=== PATIENT | female | born 1955 | race Caucasian/White ===

== ENCOUNTER → 2016-07-08 | Outpatient (CLI) | payer MEDICAID ==
[~2016-07-08] MED LIST: ALBU2.5V2 AEROSOL; ASPI-725 PO; ATOR20TA27 PO; CITA-50 PO; FLUT1DIS31; GLIM4TAB32 PO; INSU100C11 SQ; LANS30CA58 PO; LEVO200T8 PO; LEVO75TA58 PO; LISI-126 PO; NITR0.4T10 SL; POTA1TAB11 PO; SERT-80 PO; SPIR25TA4 PO; TRAV2.5D2 BOTH EYES; [UNRECOGNIZED DRUG - CODE] PO; [UNRECOGNIZED DRUG - CODE] PO; iron
[2016-07-08 13:19] LABS: HCT - HEMATOCRIT 38.3 % (36-46); HGB - HEMOGLOBIN 12.8 GM/DL (12-16); MEAN CORPUSCULAR HGB 32.2 UUG (26-34); MEAN CORPUSCULAR HGB CONC(MCHC 33.4 GM/DL (31-37); MEAN CORPUSCULAR VOLUME 96.5 UM3 (80-100); MEAN PLATELET VOLUME 10.4 UM3 (9.4-12.4); RED BLOOD COUNT 3.97 M/MM3 (4.00-5.20); WBC - WHITE BLOOD COUNT 3.8 T/MM3 (4.5-11.0)
[2016-07-08 13:27] LABS: INR 1.14 (0.76-1.04); PROTHROMBIN TIME 12.4 SEC (9.31-12.49)
[2016-07-08 13:32] LABS: EOSINOPHILS # (MANUAL) 0.1 T/MM3 (0-0.5); LYMPHOCYTES # (MANUAL) 1.5 T/MM3 (1-4.8); MONOCYTES # (MANUAL) 0.2 T/MM3 (0-0.8); NEUTROPHILS #(MANUAL)-ABSOLUTE 2.1 T/MM3 (1.8-7.7); TOTAL CELLS COUNTED 100 %
[2016-07-08 13:33] LABS: ALBUMIN 3.3 G/DL (3.5-5.0); ALKALINE PHOSPHATASE 173 U/L (38-126); ALT (SGPT) 41 U/L (9-52); ANION GAP 8 MEQ/L (5-15); AST (SGOT) 54 U/L (14-36); BUN/CREATININE RATIO 8 RATIO (6-26); CALCIUM 8.5 MG/DL (8.4-10.2); CHLORIDE 107 MEQ/L (98-107); CO2 - CARBON DIOXIDE 30 MEQ/L (22-30); CREATININE 0.6 MG/DL (0.7-1.2); GLOMERULAR FILTRATION RATE 103; GLUCOSE 195 MG/DL (65-110); POTASSIUM 3.2 MEQ/L (3.6-5); SODIUM 145 MEQ/L (134-144); TOTAL PROTEIN 6.5 G/DL (6.3-8.2)
[2016-07-11 04:34] LABS: HEPATITIS B SURFACE AG - BATCH NEGATIVE (NEGATIVE)
[2016-07-11 04:39] LABS: HEPATITIS A ANTIBODY IGM-BATCH NEGATIVE (NEGATIVE)
[2016-07-11 04:51] LABS: HEPATITIS C VIRUS AB-BATCH NEGATIVE (NEGATIVE)
== END ==
LOC: LAB 12:58
PROVIDERS: ATTEND Surgery
DX: R18.8 Other ascites (principal)
CPT/HCPCS: 36415; 80053; 80074; 85007; 85027; 85610

== ENCOUNTER → 2016-07-11 | Outpatient (CLI) | payer MEDICAID ==
[~2016-07-11] MED LIST changes: +ALBU18HF2 ORAL INH; +AMLO5TAB2 PO; +BENZ-16 PO; +DOXY100C40 PO; +FLUT1DIS ORAL INH; +FLUT9.9S NS; +HYDR-3989 PO; +INSU100C6 SQ; +IOHEXOL 300 MG/ML 100ml INJECTION ONE; +LEVO150T11 PO; +MELO7.5T12 PO; +MONT10TA22 PO; +NORMAL SALINE 100 ML ONE; +P-EP-93 PO; +PANT40TA PO; +PRAV20TA4 PO; +SALINE FLUSH 10ml SYRINGE ONE; +TRAM50TA4 PO
--- NOTE | 2016-07-11 11:40 | DI ---
Indication: ITS.REASON: R18.8 ASCITES PROCEDURE: CT ABD/PELVIS W/CONTRAST ONLY: Encounter: Initial Comparison: None Technique: Axial CT images were performed through the abdomen and pelvis after the administration of intravenous contrast. Coronal and sagittal two-dimensional reformats. Automated Exposure Control and Iterative Reconstruction dose reducing techniques were utilized. Contrast: Omnipaque 300 100 mL Findings: The lung bases are clear. The liver is nodular and cirrhotic in configuration. Moderate abdominal ascites seen. No bile duct dilatation or discrete enhancing liver mass. The gallbladder is surgically absent. There are small varices surrounding the lower esophageal segment and in the splenorenal area. The spleen is upper normal in size. The pancreas is grossly normal as are the adrenal glands. Kidneys are normal. No abdominal or pelvic lymphadenopathy. Bladder is within normal limits. Uterus is surgically absent. Sigmoid diverticulosis without evidence of acute diverticulitis. No evidence for bowel obstruction. Bone windows show degenerative changes in the spine. Impression: Cirrhosis and evidence of portal hypertension with moderate ascites and small esophageal varices. .
== END ==
LOC: IMA 08:59
PROVIDERS: ATTEND Surgery
DX: K74.69 Other cirrhosis of liver (principal); I85.10 Secondary esophageal varices without bleeding; K76.6 Portal hypertension; R18.8 Other ascites
CPT/HCPCS: 74177; J7050; Q9967

== ENCOUNTER 2016-07-16 11:43 | Outpatient (CLI) | payer MEDICAID ==
[2016-07-16] VITALS (25 sets, daily range): BP systolic 127–173; BP diastolic 58–77; PULSE 75–86; RESP 15–32; TEMP 97.3–97.8; O2SAT 94–99; Ht 162.6 cm; Wt 115.8 kg
[~2016-07-16] VITALS: Ht 162.6 cm; Wt 115.8 kg
[~2016-07-16 11:43] MED LIST changes: +ALBUMIN HUMAN 25% 12.5gm 50ml IV ONE; -FLUT1DIS31; -IOHEXOL 300 MG/ML 100ml INJECTION ONE; -LEVO75TA58 PO; +LIDOCAINE 1% (10mg/ml) 2ml SDV INJ ONE; +LR 1,000 ML IV SCH; -NORMAL SALINE 100 ML ONE; -SALINE FLUSH 10ml SYRINGE ONE; -[UNRECOGNIZED DRUG - CODE] PO; -iron
[2016-07-16 13:04] LABS: BASOPHILS % (AUTO) 0.8 % (0-2); EOSINOPHILS # (AUTO) 0.1 T/MM3 (0-0.5); EOSINOPHILS % (AUTO) 1.5 % (0-4); HCT - HEMATOCRIT 38.1 % (36-46); HGB - HEMOGLOBIN 12.7 GM/DL (12-16); IMMATURE GRANULOCYTE # (AUTO) 0.01 T/MM3 (0.00-0.03); IMMATURE GRANULOCYTE % (AUTO) 0.3 % (0.0-0.5); LYMPHOCYTES # (AUTO) 1.6 T/MM3 (1-4.8); LYMPHOCYTES % (AUTO) 39.5 % (23-45); MEAN CORPUSCULAR HGB 32.6 UUG (26-34); MEAN CORPUSCULAR HGB CONC(MCHC 33.3 GM/DL (31-37); MEAN CORPUSCULAR VOLUME 97.9 UM3 (80-100); MEAN PLATELET VOLUME 10.6 UM3 (9.4-12.4); MONOCYTES # (AUTO) 0.4 T/MM3 (0-0.8); MONOCYTES % (AUTO) 10.3 % (0-9.0); NEUTROPHILS #(AUTO)-ABSOLUTE 1.9 T/MM3 (1.8-7.7); NEUTROPHILS % (AUTO) 47.6 % (33-66); RED BLOOD COUNT 3.89 M/MM3 (4.00-5.20)
[2016-07-16 13:05] LABS: INR 1.22 (0.76-1.04); PROTHROMBIN TIME 13.3 SEC (9.31-12.49)
[2016-07-16 13:11] LABS: ALBUMIN 3.1 G/DL (3.5-5.0); ALKALINE PHOSPHATASE 152 U/L (38-126); ALT (SGPT) 47 U/L (9-52); ANION GAP 8 MEQ/L (5-15); AST (SGOT) 50 U/L (14-36); BUN/CREATININE RATIO 12 RATIO (6-26); CALCIUM 8.6 MG/DL (8.4-10.2); CHLORIDE 106 MEQ/L (98-107); CO2 - CARBON DIOXIDE 30 MEQ/L (22-30); CREATININE 0.6 MG/DL (0.7-1.2); GLOMERULAR FILTRATION RATE 103; GLUCOSE 142 MG/DL (65-110); POTASSIUM 3.9 MEQ/L (3.6-5); SODIUM 144 MEQ/L (134-144); TOTAL PROTEIN 6.2 G/DL (6.3-8.2)
[2016-07-16] MEDS ORDERED: SALINE FLUSH 10ml SYRINGE IVF ONE (14:05)
[2016-07-16] MEDS ORDERED: FENTANYL 100mcg/2ml INJECTION IV ONE (14:05)
[2016-07-16] MEDS ORDERED: MIDAZOLAM 5mg/5ml INJECTION IV ONE (14:05)
[2016-07-16] MEDS ORDERED: MIDAZOLAM 5mg/5ml INJECTION IV PRN (14:22)
--- NOTE | 2016-07-16 15:40 | GSPOSTPROC ---
Immediate Operative Note DATE: 07/16/16 TIME: 15:39 Postop Diagnosis: Ascites Surgical Procedure: Other (Paracentesis) Surgeon: JONATHAN Nieto MD Jul 16, 2016 15:40
--- NOTE | 2016-07-16 15:49 | DI ---
Indication: ITS.REASON: ascites Procedure: US THORACENTISIS/PARA NOCHARGE: Encounter: Subsequent Comparison: Abdominal CT 07/11/2016 Technique: Sonographic guidance was provided for Dr. Carter for paracentesis. Findings: Abdominal ascites identified within all four abdominal quadrants. 4500 mL were removed. Post removal, no significant ascites is identified. Impression: Successful sonographic guidance for paracentesis resulting in 4500 mL of drainage. .
[2016-07-16 16:23] LABS: BODY FLUID TYPE ASCITES FLUID; PH, BODY FLUID 7.85
[2016-07-16 16:26] LABS: BODY FLUID TYPE ASCITES FLUID
[2016-07-16 16:57] LABS: LYMPHOCYTES,BODY FLUID 28 %; NEUTROPHILS,BODY FLUID 5 %
[2016-07-16 16:58] LABS: BASOPHILS,BODY FLUID 0 %; EOSINOPHILS,BODY FLUID 0 %; MONOCYTES,BODY FLUID 58 %
--- NOTE | 2016-07-17 23:04 | OPNOTEF ---
DATE OF OPERATION 07/16/2016 PREOPERATIVE DIAGNOSIS Ascites. POSTOPERATIVE DIAGNOSIS Ascites. OPERATION Ultrasound-guided paracentesis. SURGEON Dr. Carter FINDINGS The patient did have 4,590 ml of ascites fluid removed from the peritoneal cavity at the time of the procedure today. The ascites fluid had a yellow color. The ascites was not bloody or cloudy. . DESCRIPTION OF PROCEDURE The patient was placed in Perez's position on a cart in the endoscopy room. A Osborn catheter had been inserted into the urinary bladder before the start of the procedure. The patient had received infusion of 50 g of albumin intravenously prior to the procedure. The infusion of this albumin had been completed before the start of the procedure. Ultrasound examination of the abdomen was performed by a c2 tactical analysis technician. Ultrasound examination of the abdomen was used to select a site for paracentesis. A site was selected at the left lower quadrant of the abdomen. The deepest layer of ascites fluid between the abdominal wall and the underlying intestines appeared to be present at this area. A site for paracentesis was marked on the skin with a skin marker pen. The patient was premedicated with Versed 2 mg given intravenously. The abdomen was prepped with ChloraPrep solution and draped with sterile towels. Skin, subcutaneous tissue and abdominal wall muscle and fascia at the paracentesis site were infiltrated with 1% Xylocaine without epinephrine. A short transversely oriented incision was made at the paracentesis site at the skin using scalpel. A [employer] thoracentesis/paracentesis kit was used for this procedure. The thoracentesis/paracentesis catheter was selected from the kit. The introducer needle and overlying catheter were introduced at the skin incision and passed through the abdominal wall into the peritoneal cavity with aspiration with the syringe. Ultrasound guidance was used at this time. Ascites fluid was able to be aspirated from the peritoneal cavity with the introducer needle and catheter. The introducer needle was removed from the catheter. The catheter was advanced a little further into the peritoneal cavity. Intravenous tubing was connected to the paracentesis catheter. A syringe was used to aspirate ascites fluid out of the peritoneal cavity. This same syringe was then used to instill the ascites fluid into the collection bag. Ascites fluid was aspirated from the peritoneal cavity in this manner. The patient did receive an additional 3 mg of Versed intravenously during this time. The Versed was given in small increments. The 3 mg of Versed was given in addition to the 2 mg of Versed which had been given prior to the start of the procedure. The patient therefore received a total of 5 mg of Versed intravenously including the Versed which was given both before the procedure and during the procedure. A 2 liter collection bag was filled with ascites fluid as the ascites fluid was aspirated from the peritoneal cavity. An additional 2.5 liters of ascites fluid was aspirated from the peritoneal cavity and instilled into canisters. A total of 4,590 ml of ascites fluid was removed. It was becoming more difficult to aspirate additional ascites fluid at this time. The procedure was therefore stopped at this time. The paracentesis catheter was removed from the patient. The skin was closed at the paracentesis site with Dermabond. The ascites fluid was submitted for laboratory studies including cytology, cell count with differential, amylase, lipase, LDH, specific gravity, total protein, pH, glucose, body fluid culture with gram stain and acid-fast bacilli culture and smear. Vital signs were carefully monitored throughout the procedure. Vital signs remained stable throughout the procedure. The patient did appear to tolerate the procedure well. The patient was transferred from the endoscopy room back to the short-stay surgery unit in stable condition. MISSY
== END 2016-07-16 17:25 | disposition home or self-care (01) ==
LOC: IMA.BED 11:43
PROVIDERS: ATTEND Surgery
DX: R18.8 Other ascites (principal)
CPT/HCPCS: 36415; 49083; 80053; 82042; 82150; 82945; 83615; 83690; 83986; 84157; 84315; 85025; 85610; 87015; 87070; 87116; 87150; 87186; 89051; J2250; J3010; J7120; P9047